=== PATIENT | female | born 1945 | race Caucasian/White ===

== ENCOUNTER 2018-08-05 11:32 | Day surgery (SDC) | payer OTHER ==
[2018-08-05] MEDS ORDERED: BUPIVACAINE 0.25% PF 10 ML VIAL ONE (12:15)
[2018-08-05] MEDS ORDERED: LIDOCAINE 2% MPF 5 ML VIAL ONE (12:15)
[2018-08-05] MEDS ORDERED: TETRACAINE HCL 0.5% 2ML OPTH ONE (12:15)
[2018-08-05] MEDS ORDERED: CYCLOPENTOLATE 1% OPTH 2 ML ONE (12:15)
[2018-08-05] MEDS ORDERED: PHENYLEPHRINE 10% OPTH 5ML ONE (12:16)
[2018-08-05] MEDS ORDERED: LIDOCAINE HCL/PF 3.5% OPTH GEL ONE (12:16)
[2018-08-05] MEDS ORDERED: NA CHLORIDE 0.9% 500 ML ONE (12:16)
[2018-08-05] MEDS ORDERED: PHENYLEPHRINE 10% OPTH 5ML OPTH ONE ×2 (12:24→12:29)
[2018-08-05] MEDS ORDERED: CYCLOPENTOLATE 1% OPTH 2 ML OPTH ONE ×2 (12:24→12:29)
[2018-08-05] MEDS ORDERED: NS 0.9% VIAL 10 ML ONE (12:41)
[2018-08-05] MEDS ORDERED: DUOVISC 1 KIT OPTH ONE (12:41)
[2018-08-05] MEDS ORDERED: MOXIFLOXACIN HCL 10 DROPS/ML **OR USE OPTH ONE (12:41)
[2018-08-05] MEDS ORDERED: BALANCED SALT IRRIG PLAIN 500 ML BTL IRR ONE (12:41)
[2018-08-05] MEDS ORDERED: EPINEPHRINE/PF 1 MG/ML AMP ONE (12:41)
[2018-08-05] MEDS ORDERED: LIDOCAINE 1% MPF 2 ML AMPULE ONE (12:42)
[2018-08-05] MEDS ORDERED: MIDAZOLAM HCL 2 MG/2 ML INJ ONE (13:40)
--- NOTE | 2018-08-05 14:06 | P.BOP ---
Preoperative diagnosis: Nuclear sclerotic and posterior subcapsular cataract OD Postoperative diagnosis: Same Primary procedure: Phacoemulsification with IOL OD Estimated blood loss: None Anesthesia: Local (Topical with anesthesia for cataract surgery) Complications: None Implants: SA60WF +24.0 Transferred to: Other (Day surgery) Condition: Good
--- NOTE | 2018-08-05 22:41 | OP ---
Date of Procedure: 08/05/2018 Surgeon: Nissa Holt MD Anesthesiologist: Cameron Kaiser CRNA, and Benny Evans M.D. Preoperative Diagnosis: Nuclear and posterior subcapsular cataract, OD (right eye). Operation Performed: Phacoemulsification with intraocular lens implant, right eye. Anesthesia: Per cataract surgery. Complications: None. Description Of Procedure: In the operating room the patient was prepped and draped in the usual ster ile fashion for ophthalmic surgery. A lid speculum was placed in the right eye. Two paracentesis si malena were made superiorly and inferiorly in the limbal cornea. Viscoat was placed in the anterior caio mber and a crescent blade was used to make a corneal groove and tunnel, and a keratome was used to en ter the anterior chamber. Provisc was placed in the anterior chamber and a 360 degree capsulotomy wa s performed with a cystitome. The lens was hydrodissected with BSS and rotated freely. The lens was removed with a stop and chop technique. A 4.73 phaco CDE was used to remove the lens. Residual cor indio was removed with the irrigation and aspiration. Provisc was placed in the capsular bag. An SA60 WF + 24.0 lens was placed in the capsular bag without complications. Irrigation and aspiration was u sed to remove residual viscoelastic. The paracentesis sites were hydrated with BSS. The wound and p aracentesis sites were inspected and found to be watertight. Vigamox 0.07 cc was placed intracameral ly at the end of the procedure. The eye was irrigated with balanced salt solution. The eye was patc hed with a soft cotton patch and Harrison metal shield. The patient was returned to day surgery in good condition. Comments: Akten was placed in the eye during Day Surgery and irrigated out of the eye with BSS in th e OR. Preservative-free 1% lidocaine was placed in the anterior chamber prior to Viscoat. Residual PSC remained at the end of the surgery. Discharge Instructions: Ms. Miranda is discharged to home in good condition. JENNIFER/MALENA Voice ID: [id number] Report ID: [id number]
== END 2018-08-05 14:50 | disposition home or self-care (01) ==
LOC: PRE 11:32
PROVIDERS: ATTEND Ophthalmology Retina Specialist
PROC: 08RJ3JZ Replacement of Right Lens with Synthetic Substitute, Percutaneous Approach (ICD-10-PCS; principal; 2018-08-05 09:10)
DX: H25.11 Age-related nuclear cataract, right eye (principal); H25.041 Posterior subcapsular polar age-related cataract, right eye; Z88.0 Allergy status to penicillin; Z87.891 Personal history of nicotine dependence; Z83.518 Family history of other specified eye disorder; Z80.9 Family history of malignant neoplasm, unspecified; Z82.49 Family history of ischemic heart disease and other diseases of the circulatory system
CPT/HCPCS: 66984; J0171; J2250; J2001

== ENCOUNTER 2018-10-14 07:26 | Day surgery (SDC) | payer OTHER ==
[2018-10-14] MEDS ORDERED: NA CHLORIDE 0.9% 500 ML ONE (08:09)
[2018-10-14] MEDS ORDERED: LABETALOL 20 MG/4ML SYRINGE IV ONE ×3 (08:10→08:30)
[2018-10-14] MEDS ORDERED: NS 0.9% VIAL 10 ML ONE (08:18)
[2018-10-14] MEDS ORDERED: EPINEPHRINE/PF 1 MG/ML AMP ONE (08:18)
[2018-10-14] MEDS ORDERED: BALANCED SALT IRRIG PLAIN 500 ML BTL IRR ONE (08:19)
[2018-10-14] MEDS ORDERED: DUOVISC 1 KIT OPTH ONE (08:19)
[2018-10-14] MEDS ORDERED: MOXIFLOXACIN HCL 10 DROPS/ML **OR USE OPTH ONE (08:20)
[2018-10-14] MEDS ORDERED: LIDOCAINE 1% MPF 2 ML AMPULE ONE (08:20)
[2018-10-14] MEDS ORDERED: PHENYLEPHRINE 10% OPTH 5ML OPTH ONE ×3 (08:26→08:36)
[2018-10-14] MEDS ORDERED: LIDOCAINE 2% MPF 5 ML VIAL ONE (08:30)
[2018-10-14] MEDS ORDERED: CYCLOPENTOLATE 1% OPTH 2 ML OPTH ONE ×2 (08:31→08:36)
[2018-10-14] MEDS ORDERED: CYCLOPENTOLATE 1% OPTH 2 ML ONE (08:31)
[2018-10-14] MEDS ORDERED: BUPIVACAINE 0.25% PF 10 ML VIAL ONE (08:31)
[2018-10-14] MEDS ORDERED: TETRACAINE HCL 0.5% 4ML OPTH ONE (08:32)
[2018-10-14] MEDS ORDERED: LIDOCAINE HCL/PF 3.5% OPTH GEL ONE (08:33)
[2018-10-14] MEDS ORDERED: PHENYLEPHRINE 10% OPTH 5ML ONE (08:33)
[2018-10-14] MEDS ORDERED: FENTANYL CITR 100 MCG/2 ML ONE (08:53)
[2018-10-14] MEDS ORDERED: MIDAZOLAM HCL 2 MG/2 ML INJ ONE (08:53)
--- NOTE | 2018-10-14 09:59 | P.BOP ---
Preoperative diagnosis: Nuclear sclerotic and posterior subcapsular cataract OS Postoperative diagnosis: Same Primary procedure: Phacoemulsification with IOL OS Estimated blood loss: None Anesthesia: Local (Topical with anesthesia for cataract surgery) Complications: None Implants: SA60WF +25.0 Transferred to: Other (Day surgery) Condition: Good
--- NOTE | 2018-10-14 19:02 | OP ---
Date of Procedure: 10/14/2018 Surgeon: Nissa Holt MD Anesthesiologist: 1. Cameron Will CRNA. 2. Benny Evans M.D. Preoperative Diagnosis: Nuclear sclerotic and posterior subcapsular cataract, left eye. Operation Performed: Phacoemulsification with intraocular lens implant, left eye. Anesthesia: Per cataract surgery. Complications: None. Description Of Procedure: In the operating room the patient was prepped and draped in the usual ster ile fashion for ophthalmic surgery. A lid speculum was placed in the left eye. Two paracentesis sit es were made superiorly and inferiorly in the limbal cornea. Viscoat was placed in the anterior hannah jasper and a crescent blade was used to make a corneal groove and tunnel, and a keratome was used to ent er the anterior chamber. Provisc was placed in the anterior chamber and a 360 degree capsulotomy was performed with a cystitome. The lens was hydrodissected with BSS and rotated freely. The lens was removed with a stop and chop technique. 3.10 phaco CDE was used to remove the lens. Residual cortex was removed with the irrigation and aspiration. Provisc was placed in the capsular bag. A SA60WF + 25.0 Lens was placed in the capsular bag without complications. Irrigation and aspiration was used t o remove residual viscoelastic. The paracentesis sites were hydrated with BSS. The wound and parace ntesis sites were inspected and found to be watertight. Vigamox 0.07 cc was placed intracamerally at the end of the procedure. The eye was irrigated with balanced salt solution. The eye was patched w ith a soft cotton patch and Harrison metal shield. The patient was returned to day surgery in good condition. Comments: Akten was placed in the eye in Day surgery and irrigated out of the eye with BSS in the OR . Preservative-free 1% lidocaine was placed in the anterior chamber prior to Viscoat. Discharge Instructions: Ms. Miranda is discharged to home in good condition and is to follow up with Dr. Holt in the morning. JENNIFER/MALENA Voice ID: [id number] Report ID: [id number]
== END 2018-10-14 10:35 | disposition home or self-care (01) ==
LOC: OR 07:26
PROVIDERS: ATTEND Ophthalmology Retina Specialist
PROC: 08RK3JZ Replacement of Left Lens with Synthetic Substitute, Percutaneous Approach (ICD-10-PCS; principal; 2018-10-14 09:10)
DX: H25.12 Age-related nuclear cataract, left eye (principal); H25.042 Posterior subcapsular polar age-related cataract, left eye; Z87.891 Personal history of nicotine dependence
CPT/HCPCS: 66984; J0171; J2250; J3010; J2001